=== PATIENT | male | born 1950 | race Caucasian/White ===

== ENCOUNTER 2018-07-05 10:55 | Emergency (ER) | payer OTHER ==
[2018-07-05] MEDS ORDERED: IPRATROPIUM/ALBUTEROL 3 ML DEYVIAL IH ONE (11:21)
--- NOTE | 2018-07-05 11:24 | EDPHY ---
H & P Stated Complaint: SOB Time Seen by Provider: 07/05/18 11:12 HPI/ROS: CHIEF COMPLAINT: Hemoptysis, dyspnea HISTORY OF PRESENT ILLNESS: The patient presents to the ED with several days of hemoptysis and dyspnea. The patient is visiting [place] from [place]. He has been driving extensively in his car over the past several weeks. He denies any asymmetric calf pain or swelling. The patient does report that he uses cigarettes. He denies prior history of cardiac or pulmonary disease. The patient denies fever but does report a dry nonproductive cough. REVIEW OF SYSTEMS: A comprehensive 10 point review of systems is otherwise negative aside from elements mentioned in the history of present illness. Source: Patient Exam Limitations: No limitations - Personal History Current Tetanus/Diphtheria Vaccine: Yes Current Tetanus Diphtheria and Acellular Pertussis (TDAP): Yes - Medical/Surgical History Hx Asthma: No Hx Chronic Respiratory Disease: Yes Hx Diabetes: Yes Hx Cardiac Disease: No Hx Renal Disease: No Hx Cirrhosis: No Hx Alcoholism: No Hx HIV/AIDS: No Hx Splenectomy or Spleen Trauma: No Other PMH: COPD, DM, umbilical hernia repair, 3 lumbar laminectomy, JOEL knee surgery, appy, R rotator cuff tear - Social History Smoking Status: Current every day smoker - Physical Exam Exam: General Appearance: Alert, no distress Eyes: Pupils equal and round no pallor or injection ENT, Mouth: Mucous membranes moist Respiratory: There are no retractions, lungs are clear to auscultation Cardiovascular: Regular rate and rhythm Gastrointestinal: Abdomen is soft and nontender, no masses, bowel sounds normal Neurological: A&O, normal motor function, normal sensory exam, normal cranial nerves Skin: Warm and dry, no rashes Musculoskeletal: Neck is supple nontender Extremities: symmetrical, full range of motion Psychiatric: Patient is oriented X 3, there is no agitation Constitutional: Initial Vital Signs Temperature (C) 37.1 C 07/05/18 11:03 Heart Rate 83 07/05/18 11:03 Respiratory Rate 16 07/05/18 11:03 Blood Pressure 136/90 H 07/05/18 11:03 O2 Sat (%) 85 L 07/05/18 11:03 O2 Delivery Mode Nasal Cannula O2 (L/minute) 2 Allergies/Adverse Reactions: belladonna alkaloids Allergy (Verified 07/05/18 10:59) Home Medications: Medication Instructions Recorded Aspirin 07/05/18 Atorvastatin Calcium 07/05/18 Glipizide 07/05/18 Lantus 07/05/18 Lisinopril 07/05/18 Metformin HCl 07/05/18 Oxycodone HCl 07/05/18 Superbeta Prostate 07/05/18 Testosterone 07/05/18 Medical Decision Making - Diagnostics EKG Interpretation: EKG: Complete interpretation has been separately recorded in the [employer] [facility] [employer] archive. Summary impression: Sinus rhythm, multiple PACs, nonspecific ST T wave changes noted Imaging Results: Imaging Impressions Chest X-Ray 07/05/18 11:21 Impression: Left upper lobe pleural-parenchymal consolidation. Given the patient's symptoms and radiography, contrast-enhanced CT imaging of the chest is suggested for further assessment. ED Course/Re-evaluation: The patient presents to the ED for evaluation of dyspnea and mild hemoptysis. The patient has had some risk factors for pulmonary embolism including immobility. He had an elevated D-dimer and a infiltrate noted on his chest x- ray. The patient was taken for CT scan of the chest which demonstrates a left upper lobe malignancy. There is no evidence of PE. The patient's troponin is normal. His EKG demonstrates no evidence of ischemia. The patient is unaware of her prior diagnosis of lung malignancy. The patient lives in [place] and is interested in returning home to receive care. I spoke with the patient's regular physician who is also a close friend of the patient. He will make arrangements to fly to [place] and drive home with the patient. Patient does require 2 L of nasal cannula oxygen per minute. I have made arrangements for the patient to go home with home oxygen. The patient was offered admission to our hospital however he prefers to go home. Differential Diagnosis: Differential diagnosis considered includes pulmonary embolism, acute coronary syndrome, pneumonia, pulmonary malignancy, myocardial infarction - Data Points Laboratory Results: Laboratory Results 07/05/18 11:15 07/05/18 11:15 07/05/18 07/05/18 07/05/18 11:27 11:15 11:15 WBC RBC Hgb Hct MCV MCH MCHC RDW Plt Count MPV Neut % (Auto) Lymph % (Auto) [place] % (Auto) Eos % (Auto) Baso % (Auto) Nucleat RBC Rel Count Absolute Neuts (auto) Absolute Lymphs (auto) Absolute Monos (auto) Absolute Eos (auto) Absolute Basos (auto) Absolute Nucleated RBC Immature Gran % Immature Gran # D-Dimer 0.63 ug/mLFEU H ug/mLFEU (0.00-0.50) Sodium 136 mEq/L mEq/L (135-145) Potassium 4.8 mEq/L mEq/L (3.3-5.0) Chloride 99 mEq/L mEq/L (97-110) Carbon Dioxide 25 mEq/l mEq/l (22-31) Anion Gap 12 mEq/L mEq/L (8-16) BUN 13 mg/dL mg/dL (7-23) Creatinine 1.0 mg/dL mg/dL (0.7-1.3) Estimated GFR > 60 Glucose 186 mg/dL H mg/dL (70-100) Calcium 9.6 mg/dL mg/dL (8.5-10.4) POC Troponin I 0.04 ng/mL ng/mL (0.00-0.08) NT-Pro-B Natriuret Pep 731 pg/mL H pg/mL (0-125) 07/05/18 11:15 WBC 11.31 10^3/uL H 10^3/uL (3.80-9.50) RBC 5.49 10^6/uL 10^6/uL (4.40-6.38) Hgb 15.6 g/dL g/dL (13.7-17.5) Hct 45.9 % % (40.0-51.0) MCV 83.6 fL fL (81.5-99.8) MCH 28.4 pg pg (27.9-34.1) MCHC 34.0 g/dL g/dL (32.4-36.7) RDW 14.3 % % (11.5-15.2) Plt Count 298 10^3/uL 10^3/uL (150-400) MPV 9.2 fL fL (8.7-11.7) Neut % (Auto) 66.3 % % (39.3-74.2) Lymph % (Auto) 20.5 % % (15.0-45.0) [place] % (Auto) 9.6 % % (4.5-13.0) Eos % (Auto) 2.6 % % (0.6-7.6) Baso % (Auto) 0.7 % % (0.3-1.7) Nucleat RBC Rel Count 0.0 % % (0.0-0.2) Absolute Neuts (auto) 7.50 10^3/uL H 10^3/uL (1.70-6.50) Absolute Lymphs (auto) 2.32 10^3/uL 10^3/uL (1.00-3.00) Absolute Monos (auto) 1.09 10^3/uL H 10^3/uL (0.30-0.80) Absolute Eos (auto) 0.29 10^3/uL 10^3/uL (0.03-0.40) Absolute Basos (auto) 0.08 10^3/uL 10^3/uL (0.02-0.10) Absolute Nucleated RBC 0.00 10^3/uL 10^3/uL (0-0.01) Immature Gran % 0.3 % % (0.0-1.1) Immature Gran # 0.03 10^3/uL 10^3/uL (0.00-0.10) D-Dimer Sodium Potassium Chloride Carbon Dioxide Anion Gap BUN Creatinine Estimated GFR Glucose Calcium POC Troponin I NT-Pro-B Natriuret Pep Medications Given: Discontinued Medications Albuterol/Ipratropium (Duoneb) 3 ml IH EDNOW ONE Stop: 07/05/18 11:22 Last Admin: 07/05/18 11:28 Dose: 3 ml Point of Care Test Results: Chemistry 07/05/18 11:27 POC Troponin I 0.04 ng/mL ng/mL (0.00-0.08) Departure - Departure Disposition: Home, Routine, Self-Care Clinical Impression: Lung cancer, Hypoxia Condition: Fair Instructions: Lung Cancer (DC) Additional Instructions: 1. Please wear oxygen at 2 L per minute 2. Please follow up with your physician in [place] to discuss next steps in workup of your lung cancer. Referrals: ADRI ZIMMER [Other] - As per Instructions
[2018-07-05 11:26] LABS: PLATELET COUNT 298 10^3/uL (150-400)
[2018-07-05] MEDS ORDERED: IOPAMIDOL (ISOVUE 370) 100 ML BTL IV ONE (12:32)
--- NOTE | 2018-07-05 13:03 | CPEKG ---
Test Reason : OPEN Blood Pressure : / mmHG Vent. Rate : 082 BPM Atrial Rate : 086 BPM P-R Int : 159 ms QRS Dur : 103 ms QT Int : 421 ms P-R-T Axes : 044 045 084 degrees QTc Int : 492 ms Sinus rhythm Multiple premature complexes, vent & supraven Minimal ST depression, anterolateral leads Confirmed by Tonny Roth ([id number]) on 07/05/2018 1:03:16 PM Referred By: Confirmed By:Tonny Roth
[2018-07-05 15:16] VITALS: BP 120/70
--- NOTE | 2018-07-05 17:12 | ASMTCMCOM ---
CM Note CM Note Notes: Pt presented to the ED via triage for dyspnea, hemoptysis for several days. Pt lives in [place] and recently drove to [place] to visit a friend. Pt's chest CT shows left upper lobe malignancy. Pt wants to return to [place] for further care and follow-up. Pt is accompanied in the ED by his friend Jeramy ([phone]) and is staying with him in [place]. Pt needing home oxygen set up. Pt has [facility] insurance (pt states he has 100% service coverage); this CM contacted [facility] ) who has the current contract w/the [facility]. Spoke w/Huy at [facility] and she said they would need an authorization from the [facility] first. This CM spent more than an hour calling various people within the [facility] system and have still not heard back from the appropriate people. Patient states he would rather just self-pay at this time so he can leave; pt aware of the estimated cost of $120-$200 for a month (minimum set up time) of having a concentrator and portable tanks. Spoke w/Huy at [facility] and confirmed they can deliver to Jeramy's house at [address] [place] [address], [id number]. Also confirmed [facility] has the best cell # for patient: ([phone]). Home oxygen order, ED Provider report and face sheet faxed to [facility] at [phone]. Confirmed receival. Spoke w/pt later and confirmed that [facility] had contacted him and arranged delivery. Pt states he will head back to [place] on Wednesday and that he is considering returning to [place] for follow-up and treatments. CM available for further assistance if needed. Date Signed: 07/05/2018 05:11 PM Electronically Signed By:Linnea Nova RN
--- NOTE | 2018-07-06 15:04 | ASMTCMCOM ---
CM Note CM Note Notes: Patient self presents to the ER desk today after having difficulty obtaining a POC for travel (O2) from [facility]. Chart reviewed and detailed CM note from yesterday 07/05/18 appreciated. Patient explains that the O2 was delivered yesterday evening as scheduled, however, when patient explained that he was planning to travel back home to [place] on Wednesday, the attendant who delivered the O2 tanks explained that patient would need to obtain a POC for travel. He would not be able to travel safely with the delivered O2 tanks. Today patient followed up with [facility] and was told he would need to obtain a doctor's order for a POC, and would likey need to follow up with the [facility] as [facility] does not "rent" POC's unless it was going though insurance. I contacted Sue at [facility] and she confirms that patient could "purchase" a POC for $3000, but that they could not rent one to him. Sue suggested that patient either contact Estuardo at the [facility] , or try [facility] regarding a "rental" POC if patient would still like to self-pay. I have contacted Jostin at [facility] and he confirms that patient can rent a POC for $300 for one week (one way to [place]) and they they would need a prescription for patient's O2 dose and flow. I discussed options with patient and he chooses to arrange O2 with [facility]. He has contacted Jostin directly and has made arrangements to travel to [place] tomorrow to get his set up with his POC. He will return POC in [place]- as discussed with Jostin-next week in [place] I have faxed an order for: POC, O2 @ 2L, continuous flow, to Jostin at [facility] and provided patient with the original prescription. Date Signed: 07/06/2018 03:03 PM Electronically Signed By:Talisha Bettencourt RN
== END 2018-07-05 15:21 | disposition home or self-care (01) ==
DX: C34.90 Malignant neoplasm of unspecified part of unspecified bronchus or lung (principal); R09.02 Hypoxemia; F17.200 Nicotine dependence, unspecified, uncomplicated
CPT/HCPCS: 84484-PO; Q9967